=== PATIENT | female | born 1970 | race Caucasian/White ===

== ENCOUNTER 2024-07-12 14:39 | Inpatient (IN) | payer OTHER, SELFPAY ==
[~2024-07-12 14:39] MED LIST: Iopamidol 300 61% 100 ML VIAL FS ONE
[2024-07-12] MEDS ORDERED: Droperidol 5 MG/2 ML VIAL ONE ×2 (15:27→20:19)
[2024-07-12 15:31] LABS: #Basophils 0.08 10x3/uL (0.0-0.2); #Eosinophils 0.02 10x3/uL (0.0-0.5); #Monocytes 0.55 10x3/uL (0.0-1.1); #Neutrophils 6.03 10x3/uL (1.5-8.4); %Eosinophils 0.2 % (0.0-6.0); %Monocytes 6.7 % (0.0-10.0); %Neutrophils 73.7 % (40.0-75.0); Hematocrit 31.8 % (34.9-44.5); Mean Corpuscular HGB CONC 34.6 g/dL (32.0-36.0); Mean Corpuscular Hemoglobin 31.6 pg (27.0-33.0); Mean Corpuscular Volume 91.4 fL (81.6-98.3); Mean Platelet Volume 10.3 fL (7.4-10.4); Platelet Count 161 10x3/uL (150-450); RBC Distribution Width 14.5 % (11.5-14.5); Red Blood Cell (RBC) Count 3.48 10x6/uL (3.90-5.03); White Blood Cell (WBC) Count 8.2 10x3/uL (3.5-10.5)
[2024-07-12 15:40] LABS: INR-International Normal Ratio 1.4; Prothrombin Time 14.9 sec (9.5-12.1)
[2024-07-12 15:41] LABS: Critical Call Chem-Lactate NOTIFIED ERS.MLU 1/6/25 @ 1540
[2024-07-12 15:49] LABS: Troponin I 0.019 ng/mL (< 0.028)
[2024-07-12 16:02] LABS: ALT (SGPT) 36 U/L (8-55); AST (SGOT) 123 U/L (5-34); Albumin 3.9 g/dL (3.5-5.0); Alkaline Phosphatase 131 U/L (40-110); Anion Gap 20 mmol/L (10-20); BUN (Urea Nitrogen) 14 mg/dL (9.8-20.1); Bilirubin, Total 2.5 mg/dL (0.2-1.2); Calc. Creatinine Clearance 0 mL/min (70-130); Calcium 9.6 mg/dL (7.8-10.44); Carbon Dioxide 15 mmol/L (22-29); Chloride 111 mmol/L (98-107); Estimated GFR 72; Globulin 4.6 g/dL (2.4-3.5); Glucose 97 mg/dL (70-105); Lipase 48 U/L (8-78); Magnesium 1.8 mg/dL (1.6-2.6); Potassium 4.1 mmol/L (3.5-5.1); Protein, Total 8.5 g/dL (6.0-8.3); Sodium 142 mmol/L (136-145)
[2024-07-12] MEDS ORDERED: Pantoprazole 40 MG VIAL IVP SCH (21:30)
[2024-07-12 21:43] LABS: Magnesium 1.8 mg/dL (1.6-2.6)
[2024-07-12 22:14] VITALS: BMI 25.3
[2024-07-12 22:32] LABS: Bilirubin Neg (Negative); Blood, Urine 50 (Negative); Clarity Slightly Cloudy (Clear); Glucose, Urine (Dipstick) Normal (Negative); Ketone, Urine Negative (Negative); Leukocyte 100 (Negative); Nitrite Negative (Negative); Protein, Urine (Dipstick) 15 mg/dl (Neg-Trace); Urobilinogen Normal mg/dL (Less than 2)
[2024-07-12] MEDS: Potassium Chloride 20 MEQ in Lactated Ringer's 1,000 ML IV SCH (22:38)
[2024-07-12] MEDS: Piperacillin/Tazobactam 3.375 GM in Sodium Chloride 0.9% 100 ML IVPB SCH (22:38)
[2024-07-12] MEDS: FOLIC ACID SC SCH (22:40)
[2024-07-12] MEDS: Folic Acid 5 MG/ML MDV SC SCH (22:53)
[2024-07-12] MEDS: Vancomycin 1.5 GRAM/300 ML BAG IVPB SCH (22:53)
[2024-07-12] MEDS ORDERED: Vancomycin 1.5 GRAM/300 ML BAG 1.5 GM in Premix 1 BAG IVPB SCH (23:00)
[2024-07-12] MEDS: Promethazine HCl 12.5 MG in Sodium Chloride 0.9% 50 ML IVPB PRN (23:02)
[2024-07-12] MEDS: Magnesium 2 GM/50 ML(in water) 2 GM in Premix 1 BAG IVPB SCH (23:23)
[2024-07-12 23:27] LABS: Bacteria/HPF 1+ HPF (None Seen); CAUTI Indications for Culture Fever or rigors; RBC/HPF 0-3 HPF (0-3)
[2024-07-12 23:29] LABS: Urine Culture Reflex Yes Yes
[2024-07-12] MEDS: Pantoprazole 80 MG, Admixture Fee 1 EACH in Sodium Chloride 0.9% 100 ML IVPB SCH (23:44)
[2024-07-13] MEDS: Vancomycin 1.5 GM in Sodium Chloride 0.9% 250 ML 300 ML IVPB SCH (00:07)
[2024-07-13] MEDS: Piperacillin/Tazobactam 3.375 GM in Sodium Chloride 0.9% 100 ML IVPB SCH (01:08)
[2024-07-13] MEDS: Potassium Chloride 20 MEQ in Lactated Ringer's 1,000 ML IV SCH (02:09)
[2024-07-13] MEDS: FLU (Fluarix Triv) TS24-25(6MOS UP)/PF 45 MCG/0.5 ML Syringe IM ONE (03:18)
[2024-07-13 04:37] LABS: Anion Gap 13 mmol/L (10-20); BUN (Urea Nitrogen) 11 mg/dL (9.8-20.1); Calc. Creatinine Clearance 97 mL/min (70-130); Calcium 8.5 mg/dL (7.8-10.44); Carbon Dioxide 18 mmol/L (22-29); Chloride 112 mmol/L (98-107); Estimated GFR 92; Glucose 81 mg/dL (70-105); Lipase 27 U/L (8-78); Potassium 3.9 mmol/L (3.5-5.1); Sodium 139 mmol/L (136-145)
[2024-07-13 05:02] LABS: #Basophils 0.03 10x3/uL (0.0-0.2); #Eosinophils 0.04 10x3/uL (0.0-0.5); #Monocytes 0.45 10x3/uL (0.0-1.1); #Neutrophils 2.19 10x3/uL (1.5-8.4); %Basophils 0.7 % (0.0-2.0); %Eosinophils 0.9 % (0.0-6.0); %Lymphocytes 40.9 % (18.0-47.0); %Monocytes 9.8 % (0.0-10.0); %Neutrophils 47.5 % (40.0-75.0); Hematocrit 25.1 % (34.9-44.5); Hemoglobin 8.4 g/dL (12.0-15.5); Mean Corpuscular HGB CONC 32.9 g/dL (32.0-36.0); Mean Corpuscular Hemoglobin 31.3 pg (27.0-33.0); Mean Platelet Volume 10.4 fL (7.4-10.4); Platelet Count 74 10x3/uL (150-450); RBC Distribution Width 14.6 % (11.5-14.5); Red Blood Cell (RBC) Count 2.62 10x6/uL (3.90-5.03); White Blood Cell (WBC) Count 4.9 10x3/uL (3.5-10.5)
[2024-07-13 05:05] LABS: Ovalocytes SLIGHT = 2-5 cells (100X) (0-1/hpf); Platelet Adequacy Comment Appears Decreased; Small Platelets SLIGHT HPF (0-15); Tear Drops SLIGHT = 2-5 cells (100X) (0-1/hpf)
[2024-07-13 07:48] LABS: Magnesium 2.3 mg/dL (1.6-2.6)
[2024-07-13] MEDS ORDERED: Folic Acid 5 MG/ML MDV SC SCH (09:00)
[2024-07-13] MEDS: Pantoprazole 40 MG VIAL IVP SCH (09:29)
[2024-07-13] MEDS: Vancomycin 1 GM in Sodium Chloride 0.9% 250 ML 250 ML IVPB SCH (09:31)
[2024-07-13] MEDS: Multivitamins, Adult 10 ML, Folic Acid 1 MG, Thiamine HCl 100 MG, Admixture Fee 1 EACH ... IV SCH (09:35)
[2024-07-13] MEDS: FOLIC ACID SC SCH (09:36)
[2024-07-13 11:13] LABS: ALT (SGPT) 23 U/L (8-55); AST (SGOT) 81 U/L (5-34); Albumin 2.9 g/dL (3.5-5.0); Alkaline Phosphatase 107 U/L (40-110); Bilirubin, Direct 1.3 mg/dL (0.1-0.3); Bilirubin, Total 2.8 mg/dL (0.2-1.2); Protein, Total 6.1 g/dL (6.0-8.3)
[2024-07-13] MEDS: Pregabalin 75 MG CAP PO SCH ×2 (13:25→20:17)
[2024-07-13] MEDS ORDERED: Polyethylene Glycol 3350 17 GM Packet PO PRN (19:22)
[2024-07-13] MEDS: Polyethylene Glycol 3350 17 GM Packet PO SCH (20:17)
[2024-07-14 08:46] VITALS: BP 131/68; TEMP 98
[2024-07-14 09:44] LABS: #Basophils 0.04 10x3/uL (0.0-0.2); #Eosinophils 0.21 10x3/uL (0.0-0.5); #Monocytes 0.46 10x3/uL (0.0-1.1); %Basophils 0.8 % (0.0-2.0); %Eosinophils 4.4 % (0.0-6.0); %Lymphocytes 32.6 % (18.0-47.0); %Monocytes 9.6 % (0.0-10.0); %Neutrophils 52.2 % (40.0-75.0); Mean Corpuscular HGB CONC 32.1 g/dL (32.0-36.0); Mean Corpuscular Hemoglobin 30.2 pg (27.0-33.0); Mean Platelet Volume 10.8 fL (7.4-10.4); RBC Distribution Width 14.2 % (11.5-14.5); Red Blood Cell (RBC) Count 2.98 10x6/uL (3.90-5.03); White Blood Cell (WBC) Count 4.8 10x3/uL (3.5-10.5)
[2024-07-14 09:46] LABS: Platelet Count 71 10x3/uL (130-400)
[2024-07-14 09:50] LABS: ALT (SGPT) 25 U/L (8-55); AST (SGOT) 86 U/L (5-34); Albumin 3.2 g/dL (3.5-5.0); Alkaline Phosphatase 111 U/L (40-110); Anion Gap 12 mmol/L (10-20); BUN (Urea Nitrogen) 5 mg/dL (9.8-20.1); Bilirubin, Total 2.9 mg/dL (0.2-1.2); Calc. Creatinine Clearance 89 mL/min (70-130); Calcium 8.9 mg/dL (7.8-10.44); Carbon Dioxide 19 mmol/L (22-29); Chloride 111 mmol/L (98-107); Estimated GFR 83; Globulin 3.6 g/dL (2.4-3.5); Glucose 112 mg/dL (70-105); Potassium 3.6 mmol/L (3.5-5.1); Protein, Total 6.8 g/dL (6.0-8.3); Sodium 138 mmol/L (136-145)
[2024-07-14] MEDS: FOLIC ACID SC SCH (10:19)
[2024-07-14] MEDS: Lactulose 20 GM (30 mL) UDCUP PO SCH (10:20)
== END 2024-07-14 15:04 | disposition home or self-care (01) | DRG 641 ==
LOC: CSHERS 14:39 → CSHTELE 20:44 → OBSVTOIN 07-14 08:03
PROVIDERS: ADMIT Family Medicine; ATTEND Hospitalist
DX: E86.9 Volume depletion, unspecified (principal); K76.6 Portal hypertension; K70.30 Alcoholic cirrhosis of liver without ascites; K52.9 Noninfective gastroenteritis and colitis, unspecified; Z95.0 Presence of cardiac pacemaker; F10.20 Alcohol dependence, uncomplicated; G62.9 Polyneuropathy, unspecified; K31.89 Other diseases of stomach and duodenum; Z79.899 Other long term (current) drug therapy
CPT/HCPCS: 36415; 71045; 74177; 80048; 80053; 80076; 80202; 81001; 83605; 83690; 83735; 84484; 85025; 85610; 87040; 87086; 93005; 93010; 96372; 96374; 96375; 96376; G0378; J1790; J2470; J2543; J2550; J3370; J3411; J3475; J3480; J7042; J7050; J7120; Q9967